=== PATIENT | female | born 1940 | race Caucasian/White ===

== ENCOUNTER 2023-12-17 13:09 | Outpatient (RCR) | payer MEDICARE, SELFPAY | END 2024-03-02 11:10 | disposition home or self-care (01) | LOC: ANHDMC 13:09 | PROVIDERS: PCP Urology; Visit Provider Internal Medicine | DX: E11.9 Type 2 diabetes mellitus without complications (principal); K43.9 Ventral hernia without obstruction or gangrene; Z96.659 Presence of unspecified artificial knee joint; Z90.710 Acquired absence of both cervix and uterus; Z71.89 Other specified counseling | CPT/HCPCS: G0108 ==